=== PATIENT | female | born 1965 | race Caucasian/White ===

== ENCOUNTER 2020-02-21 17:44 | Emergency (ER) | payer OTHER ==
[~2020-02-21] VITALS: Ht 160 cm; Wt 122.5 kg
[2020-02-21] MEDS ORDERED: STONEX PO (21:55)
[2020-02-21] MEDS ORDERED: KETO10TA2 PO (21:55)
== END 2020-02-21 22:44 | disposition home or self-care (01) ==
LOC: ER 17:44
DX: N20.0 Calculus of kidney (principal); Z03.818 Encounter for observation for suspected exposure to other biological agents ruled out; R10.11 Right upper quadrant pain

== ENCOUNTER 2023-06-30 23:24 | Emergency (ER) | payer OTHER ==
[~2023-06-30] VITALS: Ht 160 cm; Wt 124.7 kg
[~2023-06-30 23:24] MED LIST: KETO10TA2 PO; STONEX PO
[2023-06-30] MEDS ORDERED: COZAAR50 MG PO (23:50)
== END 2023-07-01 | disposition left against medical advice (07) ==
LOC: ER 23:25
DX: Z53.21 Procedure and treatment not carried out due to patient leaving prior to being seen by health care provider (principal)